=== PATIENT | female | born 1965 | race Caucasian/White ===

== ENCOUNTER → 2017-10-30 | Outpatient (CLI) | payer MEDICARE, OTHER ==
--- NOTE | 2017-10-30 14:32 | RAD ---
EXAM DESCRIPTION: Barium Swallow: RF CLINICAL HISTORY: DYSPHAGIA, UNSPECIFIED R13.10. Several months duration. Gastric reflux. Taking Omeprazole. COMPARISON: None TECHNIQUE: The patient swallowed gas-producing granules, water, and medium density barium under fluoroscopic visualization. The images were obtained with the patient standing and horizontal. Patient drank medium density barium through a straw in the semi-prone position. 12 fluoroscopic cine loop images. 3 static fluoroscopic images. Total fluoroscopy time was 2.1 minutes. DAP: 65.7 mGy. FINDINGS: No evidence of gema aspiration or gema swallowing dysfunction in the hypopharynx or larynx region. Smooth margins of the esophagus with no mucosal lesions or mass effect. Primary peristaltic wave is unremarkable with no secondary or tertiary contractions No gastroesophageal reflux or hiatal hernia. Normal caliber of the gastroesophageal hiatus. No gross intrinsic lesions of the stomach or mass effect. IMPRESSION: Esophageal swallowing study with barium showing significant abnormalities of the swallowing mechanism in the hypopharynx and larynx or in the remainder of the esophagus. No mucosal lesions or mass effect. No hiatal hernia or gastroesophageal reflux. Electronically signed by: Dexter Paula MD 10/30/2017 2:31 PM [facility]
== END ==
LOC: RAD 09:05
PROVIDERS: ATTEND Nurse Practitioner Family
DX: R13.10 Dysphagia, unspecified (principal)

== ENCOUNTER 2018-02-20 05:44 | Day surgery (SDC) | payer MEDICARE, MEDICAID ==
[2018-02-20] MEDS ORDERED: LACTATED RINGERS 1,000 ML ONE (06:11)
--- NOTE | 2018-02-20 08:57 | OP ---
DATE OF PROCEDURE: 02/20/18 PREPROCEDURE DIAGNOSIS: 1. History of polyps. 2. Surveillance colonoscopy. POSTPROCEDURE DIAGNOSIS: 1. Extensive number of colonic polyps partially resected, removed and retrieved. PROCEDURE: 1. Colonoscopy. SURGEON: Tex Vasquez MD SEDATION: The patient was sedated via IV propofol by the Anesthesia Department. COMPLICATIONS: No immediate complications. CONSENT: Prior to the procedure, risks, benefits and alternatives to the therapy were discussed with the patient. The risks included bleeding, infection , perforation and . The patient agreed to the procedure and signed a consent. PREPROCEDURE ANESTHESIA ASSESSMENT: An examination revealed no contraindication to sedation. Airway examination demonstrated a Mallampati class type 2, ASA grade assessment type 3. Throughout the procedure, the patient's blood pressure, pulse and oxygen saturation were monitored continuously. PROCEDURE: The patient was placed in the left lateral decubitus position and a rectal examination was performed. The rectal examination was within normal limits. The Olympus colonoscope was passed in the anus, rectum, traversing the colon to the level of the cecum as identified by the appendiceal orifice. The scope was retracted and the mucosa was visualized. The entirety of the exam was performed with direct visualization. Retroflexion was performed in the rectum. Preparation quality was fair to good except for the sigmoid colon as this was suboptimal. The withdrawal time was greater than 6 minutes. The patient tolerated the procedure well. FINDINGS: Extensive number of semi-sessile and pedunculated polyps were seen throughout the colon. A total of 15 resections were performed with both hot and cold snare resection. Polyps were partially retrieved as some of them were not able to be suctioned through the scope and no Harden net was available for capturing. A decision to terminate the procedure was made after significant number polypectomies and only suboptimal bowel preparation in the sigmoid colon. All the polyps removed were located in the cecum, ascending and transverse colon. A larger polyp measuring approximately 20 mm was left in place in the transverse colon due to its size and no available clips for possible post polypectomy bleeding prophylaxis. IMPRESSION: Numerous colonic polyps, partially removed and retrieved. 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 Additional clinical correlation and repeat colonoscopy is required. RECOMMENDATION: 1. Return home. 2. Resume previous diet. 3. Repeat colonoscopy in the next 3 to 6 months for colonic polyp removal. 4. Followup pathology. 5. Consider genetic counseling for genetic mutation workup. 6. All findings were discussed with the patient and family members. #[id number] [facility]
[2018-02-20 09:27] VITALS: BP 123/78; TEMP 97.1; O2SAT 96
[2018-02-20] MEDS ORDERED: LIDOCAINE 1% 10 ML VIAL INJ ONE (10:00)
[2018-02-20] MEDS ORDERED: PROPOFOL 200 MG/20 ML VIAL IV ONE (10:00)
== END 2018-02-20 09:25 | disposition home or self-care (01) ==
LOC: AMB 05:44
PROVIDERS: ATTEND Internal Medicine Gastroenterology
DX: Z12.11 Encounter for screening for malignant neoplasm of colon (principal); Z86.010 Personal history of colon polyps; D12.2 Benign neoplasm of ascending colon; F41.9 Anxiety disorder, unspecified; E03.9 Hypothyroidism, unspecified; I10 Essential (primary) hypertension; F31.9 Bipolar disorder, unspecified; K21.9 Gastro-esophageal reflux disease without esophagitis; F17.210 Nicotine dependence, cigarettes, uncomplicated; Z88.5 Allergy status to narcotic agent; Z79.899 Other long term (current) drug therapy
CPT/HCPCS: 00812; 45385; 88305; J3490; J7120

== ENCOUNTER → 2018-03-07 | Outpatient (CLI) | payer MEDICARE, MEDICAID | LOC: YCFC.O 12:05 | PROVIDERS: ATTEND Nurse Practitioner Family | DX: Z00.00 Encounter for general adult medical examination without abnormal findings (principal); Z13.220 Encounter for screening for lipoid disorders; R63.4 Abnormal weight loss; R53.82 Chronic fatigue, unspecified ==

== ENCOUNTER → 2018-03-21 | Outpatient (CLI) | payer MEDICARE, MEDICAID | LOC: YCFC.O 09:40 | PROVIDERS: ATTEND Nurse Practitioner Family | DX: E03.9 Hypothyroidism, unspecified (principal) ==

== ENCOUNTER → 2018-04-11 | Outpatient (CLI) | payer MEDICARE, MEDICAID | LOC: YCFC.O 15:10 | PROVIDERS: ATTEND Nurse Practitioner Family | DX: R35.0 Frequency of micturition (principal) ==

== ENCOUNTER → 2019-02-13 | Outpatient (CLI) | payer MEDICARE, OTHER | LOC: YCFC.O 11:44 | PROVIDERS: ATTEND Nurse Practitioner Family | DX: Z00.00 Encounter for general adult medical examination without abnormal findings (principal); E03.9 Hypothyroidism, unspecified; Z13.220 Encounter for screening for lipoid disorders ==

== ENCOUNTER → 2019-02-20 | Outpatient (CLI) | payer MEDICARE, OTHER ==
--- NOTE | 2019-02-22 07:41 | US ---
Thyroid sonogram CLINICAL HISTORY: Thyromegaly. Hypothyroidism. FINDINGS: Heterogeneous echotexture of the thyroid diffusely. 2 well delineated nodules, well-circumscribed. No calcifications. Right lobe measures 5.3 x 2.1 x 2.4 cm. Dominant solid nodule mid to lower thyroid measures 2.2 x 2.5 x 1.7 cm. An adjacent nodule posterior mid gland 1.6 x 1.0 x 1.2 cm Left lobe measures 4.2 x 1.4 x 1.8 cm. Nodule of the lower pole measures 0.9 x 1 x 1.2 cm. Well-circumscribed. No calcification. No surrounding adenopathy IMPRESSION: Heterogeneous echotexture compatible with sequela of thyroiditis/multinodular goiter. Dominant nodule along the mid to lower right lobe, 2.5 cm in greatest dimension. Consider FNA Electronically signed by: Juvenal Dominguez MD 02/22/2019 7:39 AM CDT
== END ==
LOC: US 11:00
PROVIDERS: ATTEND Nurse Practitioner Family
DX: E03.9 Hypothyroidism, unspecified (principal); E04.1 Nontoxic single thyroid nodule

== ENCOUNTER → 2019-02-26 | Outpatient (CLI) | payer MEDICARE, OTHER | LOC: LAB.O 12:58 | PROVIDERS: ATTEND Nurse Practitioner Family | DX: E03.9 Hypothyroidism, unspecified (principal) ==

== ENCOUNTER → 2019-08-07 | Outpatient (CLI) | payer MEDICARE, MEDICAID ==
[~2019-08-07] MED LIST: ALBUTEROL SULFATE 2.5 MG/3 ML VIAL NEB ONE
--- NOTE | 2019-08-08 08:24 | RAD ---
EXAM DESCRIPTION: Chest,2 Views CLINICAL HISTORY: DIFFICULTY SWALLOWING COMPARISON: None TECHNIQUE: PA/lateral FINDINGS: There is no cardiac or pulmonary abnormality. The lungs are clear. There is no effusion. IMPRESSION: 1. Normal two-view chest. Electronically signed by: Jovany Curtis MD 08/08/2019 8:22 AM [facility]
== END ==
LOC: YCFC.O 13:41
PROVIDERS: ATTEND Nurse Practitioner
DX: R13.10 Dysphagia, unspecified (principal); R06.00 Dyspnea, unspecified; E03.9 Hypothyroidism, unspecified
CPT/HCPCS: 71046; 83880; 84439; 84443; 94060; J7611

== ENCOUNTER → 2019-08-12 | Outpatient (CLI) | payer MEDICARE, MEDICAID ==
--- NOTE | 2019-08-12 14:19 | US ---
Thyroid Biopsy, Image-Guided: Ultrasound CLINICAL INFORMATION: Original scan in February 2019. 2.5 cm solid nodule right lobe. TECHNIQUE: Procedure performed by Dr. Paula. Timeout was performed for identification of patient and procedure and body part. Procedure was explained to the patient with risks and benefits. The patient gave verbal and written consent. Sterile preparation draping. 1% xylocaine dermal anesthetic 9-1 mixture with sodium bicarbonate. Sterile ultrasound guidance. A total of 6 passes solid mass inferior right lobe; 4 needle samplings with a separate 1.5 inch, 25-gauge needle per sample, and 2 aspirations, with a separate 1.5 inch, 25-gauge needle/10-cc syringe set, per aspiration. Each sample was placed on a separate slide and fixed in 95% alcohol container. Saccomanno fluid drawn into aspirate needle and rinse injected into Saccomanno container. Specimens to be sent for pathologic examination at remote facility. . Patient tolerated procedure well. Biopsy #: 1 Nodule reference number based on prior diagnostic ultrasound:other Maximum size: 2.5 cm Location: right; lower ACR TI-RADS risk category: TR4 (4-6 points) Reason for biopsy: meets ACR TI-RADS criteria Complications: None. Other: Very few cells visible on the slide. Only one pass demonstrated blood. IMPRESSION: Successful ultrasound guided fine needle aspiration of right lower lobe thyroid nodule. ACR TI-RADS Risk Category TR 4 Electronically signed by: Dexter Paula MD 08/12/2019 2:17 PM [employer] SPECIAL[facility]
== END ==
LOC: US 10:00
PROVIDERS: ATTEND Nurse Practitioner
DX: E04.1 Nontoxic single thyroid nodule (principal)

== ENCOUNTER → 2019-09-05 | Outpatient (CLI) | payer MEDICARE, MEDICAID | LOC: YCFC.O 11:41 | PROVIDERS: ATTEND Nurse Practitioner | DX: E03.9 Hypothyroidism, unspecified (principal) ==

== ENCOUNTER → 2019-09-16 | Outpatient (CLI) | payer MEDICARE, MEDICAID ==
--- NOTE | 2019-09-17 11:20 | US ---
Thyroid Biopsy, Image-Guided: Biopsy of Thyroid: Ultrasound CLINICAL INFORMATION: 54 years Female. Follow-up biopsy thyroid right lobe nodule, insufficient cells on prior biopsy August 2019. TECHNIQUE: Procedure was explained to the patient with risks and benefits. The patient gave verbal and written consent. Sterile preparation draping. 1% xylocaine dermal anesthetic 9-1 mixture with sodium bicarbonate. Sterile ultrasound guidance. A total of 6 passes solid mass inferior right lobe; 3 needle samplings with a separate 1.5 inch, 25-gauge needle per sample, and 3 aspirations, with a separate 1.5 inch, 25-gauge needle/10-cc syringe set, per aspiration. Each sample was placed on a separate slide and fixed in 95% alcohol container. Saccomanno fluid drawn into aspirate needle and rinse injected into Saccomanno container. Specimens to be sent for pathologic examination at remote facility. . Patient tolerated procedure well. Biopsy #: 1 Nodule reference number based on prior diagnostic ultrasound:other. Not given nodule number on initial study. Biopsy #1 on prior procedure. Maximum size: 2.5 cm Location: right; mid ACR TI-RADS risk category: TR4 (4-6 points) Reason for biopsy: meets ACR TI-RADS criteria Complications: None. Minimal amount of cells and fluid, more than prior study. FINDINGS: Multiple images demonstrate the echogenic needle within the right lobe nodule/mass during sampling and aspirations. IMPRESSION: Successful ultrasound guided fine needle aspiration of right solid mid thyroid nodule. ACR TI-RADS Risk Category TR 4 Electronically signed by: Dexter Paula MD 09/17/2019 11:18 AM [employer]
== END ==
LOC: US 11:15
PROVIDERS: ATTEND Nurse Practitioner
DX: E04.1 Nontoxic single thyroid nodule (principal)

== ENCOUNTER → 2019-10-03 | Outpatient (CLI) | payer MEDICARE, MEDICAID | LOC: LAB.O 14:33 | PROVIDERS: ATTEND Nurse Practitioner | DX: E03.9 Hypothyroidism, unspecified (principal) ==

== ENCOUNTER → 2020-02-19 | Outpatient (CLI) | payer MEDICARE, MEDICAID ==
--- NOTE | 2020-02-20 17:35 | US ---
US THYROID CLINICAL STATEMENT:54 years Female NODULE. . Palpable mass right lobe. Prior right lobe biopsy x 2 non-diagnostic results. No thyroid medication. COMPARISON: None TECHNIQUE: Transcutaneous scanning, grayscale and Doppler modes. FINDINGS: Size right thyroid lobe: 4.8 x 2.5 x 1.9 cm Size left thyroid lobe: 4.1 x 1.9 x 1.6 cm Size isthmus: 0.25 cm Estimated total number of nodules greater than or equal to 1 cm: 1. No distinct cysts, no fluid collection, no large calcifications in the thyroid lobes. No overlying skin changes. Nodule 1: Size: 2.2 x 2.2 x 2.1 cm Location: Right Mid Composition: solid or almost completely solid: 2 points Echogenicity: hypoechoic: 2 points Shape: wider than tall: 0 points Margins: ill-defined: 0 points Echogenic foci: none: 0 points ACR Total Points: 4; ACR TI-RADS risk category: TR4 - moderately suspicious nodule. Soft tissue around the thyroid gland is unremarkable. IMPRESSION: 1. Nodule 1: ACR TI-RADS 2017 Category TR4. Stable appearance and size compared to the prior study. Recommend: Follow-up ultrasound in 1 year.. Recommendations based upon [employer] [facility] Best Practice recommendations and ACR TI-RADS 2017 guidelines. Please see below*. 2. Soft tissue around the thyroid gland is unremarkable. *ACR TI-RADS 2017 Recommendations for imaging follow-up of nodules: TR1: No FNA or follow up TR2: No FNA or follow up TR3: FNA if >/= 2.5 cm, follow up if 1.5 - 2.4 cm in 1, 3, and 5 years TR4: FNA if >/= 1.5 cm, follow up if 1.0 - 1.4 cm in 1, 2, 3, and 5 years TR5: FNA if >/= 1.0 cm, follow up if 0.5 - 0.9 cm every year for 5 years ACR TI-RADS recommends that no more than two nodules with the highest ACR TI-RADS total point should be biopsied and no more than four nodules should be followed. These recommendations do not apply to patients with increased risk for thyroid cancer or patients with symptomatic thyroid disease. Electronically signed by: Dexter Paula MD 02/20/2020 5:34 PM CDT
== END ==
LOC: US 13:35
PROVIDERS: ATTEND Internal Medicine Endocrinology, Diabetes & Metabolism
DX: E03.9 Hypothyroidism, unspecified (principal); E06.3 Autoimmune thyroiditis; E04.1 Nontoxic single thyroid nodule; Z83.49 Family history of other endocrine, nutritional and metabolic diseases

== ENCOUNTER 2020-06-24 11:03 | Inpatient (IN) | payer MEDICARE, MEDICAID ==
--- NOTE | 2020-06-24 11:48 | RAD ---
Procedure: XR CHEST 1 VIEW Exam Date: 06/24/2020 Ordering Provider: Doroteo Dixon Clinical Indication: sob Comparison: 08/07/2019 Findings: Cardiomediastinal silhouette is within normal limits. Aortic calcification. No focal lung consolidation. No pleural effusion. No pneumothorax. No acute osseous abnormality. Impression: 1. No acute abnormality in the chest. Electronically signed by: Phu Leiva MD 06/24/2020 11:47 AM CDT
[2020-06-24] MEDS ORDERED: MAGNESIUM SULFATE PREMIX 4GM 4 GM in PREMIX BAG 1 BAG IVPB ONE (11:56)
[2020-06-24] MEDS ORDERED: CALCIUM GLUCONATE INJ 1 GM in SODIUM CHLORIDE 0.9% 50ML 50 ML IVPB ONE (11:56)
[2020-06-24] MEDS ORDERED: IPRATROPIUM/ALBUTEROL 3 ML VIAL NEB ONE (12:21)
[2020-06-24] MEDS ORDERED: predniSONE 20 MG TAB PO ONE (13:44)
[2020-06-24] MEDS ORDERED: CALCITRIOL 0.25 MCG CAP PO ONE (13:57)
--- NOTE | 2020-06-24 14:13 | ED.PDOC ---
History of Present Illness - General Chief Complaint: Neuro Symptoms/Deficits Stated Complaint: right hand numbness (post op) Time Seen by Provider: 06/24/20 11:13 Source: patient Exam Limitations: no limitations - History of Present Illness Initial Comments: The patient is a 55-year-old female presented emergency room secondary to symptoms of muscle cramping in her forearms with tetany in her hands along with shortness of breath and hoarseness are progressive since she had her thyroid removed 4 days ago. The patient had it removed with . I did speak with this doctor on the phone and she reports that the vocal cord movement was good post surgery. Parathyroids were left in place. Timing/Duration: other - 4 days Severity: moderate Improving Factors: nothing Worsening Factors: nothing Associated Symptoms: cough, malaise, shortness of breath, weakness Allergies/Adverse Reactions: Allergies Codeine Allergy (Verified 02/20/18 08:12) Review of Systems - Review of Systems Constitutional: States: malaise EENTM: States: other - hoarse Respiratory: States: short of breath Cardiology: States: no symptoms reported Gastrointestinal/Abdominal: States: no symptoms reported Genitourinary: States: no symptoms reported Musculoskeletal: States: see HPI Skin: States: no symptoms reported Neurological: States: anxiety Endocrine: States: no symptoms reported All other Systems: No Change from Baseline Past Medical History (General) - Patient Medical History Hx of COPD: Yes Hx Hypertension: No Hx Thyroid Disease: Yes - hashimotos Hx Diabetes: No Hx Renal Disease: No Hx MRSA: No Surgical History: other Family Medical History - Family History Mother Family History: No Known Physical Exam - Physical Exam General Appearance: Alert, Anxious Eye Exam: bilateral normal Ears, Nose, Throat: hearing grossly normal, normal pharynx Neck: other - Steri-Strips in place over thyroidectomy site. Respiratory: lungs clear, normal breath sounds, no respiratory distress, no accessory muscle use Cardiovascular/Chest: normal peripheral pulses, regular rate, rhythm, no edema Peripheral Pulses: radial,right: 2+, radial,left: 2+ Gastrointestinal/Abdominal: non tender, soft Rectal Exam: deferred Back Exam: no CVA tenderness, no vertebral tenderness Extremity: normal range of motion, non-tender, normal inspection, no pedal edema, normal capillary refill Neurologic: operations boardman II-XII nml as tested, alert, normal mood/affect, oriented x 3 Skin Exam: normal color Comments: Vital Signs - 24 hr 06/24/20 11:10 Temperature 97.8 F Pulse Rate [ 71 left brachial] Respiratory 22 Rate Blood Pressure 167/78 [right brachial ] O2 Sat by Pulse 96 Oximetry Progress - Progress Progress: 06/24/20 14:15 The patient is a 55-year-old female now 4 days status post thyroidectomy. The patient is having complications of hypo parathyroidism in the form of hypomagnesia and hypocalcemia. She did receive IV magnesium and has already received 1 amp of calcium gluconate. The patient is going to be admitted for continued calcium administration. She is receiving her first dose of calcitriol now. Her surgeon would like her on 2 weeks of calcitriol 0.5 mcg twice daily. Additionally the patient will be placed on calcium carbonate 4 tablets 4 times daily when she leaves the hospital. Tetany has greatly improved with the magnesium and the calcium. The patient is feeling much better. Patient does have some hoarseness and some shortness of breath. Lung hernandez are clear both on auscultation and on chest x-ray. I believe this is due to swelling around the voicebox. Nasolaryngoscopy performed by me does show some edema in the tissues just superior to the vocal cords. Both vocal cords do appear to be moving. The patient received a dose of prednisone to help reduce inflammation. Admit for continued care and monitoring. No evidence of any cardiac manifestations at this point. Acceptance is appreciated. steven mckinnon [phone] - Results/Orders Results/Orders: EKG shows normal sinus rhythm at 61 bpm. Normal axis. Normal R wave progression. Possible early right bundle branch block. No ST segment or T wave changes indicative of acute ischemia. Normal QT interval. Chest x-ray shows no acute pathology. Laboratory Results - last 24 hr 06/24/20 06/24/20 06/24/20 11:28 11:28 11:28 WBC 6.5 RBC 4.48 Hgb 13.2 Hct 38.4 MCV 85.7 MCH 29.4 MCHC 34.4 RDW 14.8 H Plt Count 222 MPV 7.5 Absolute Neuts (auto) 4.10 Absolute Lymphs (auto) 2.00 Absolute Monos (auto) 0.30 Absolute Eos (auto) 0.00 Absolute Basos (auto) 0.00 Neutrophils % 63.9 Lymphocytes % 31.4 Monocytes % 4.1 Eosinophils % 0.0 L Basophils % 0.6 Sodium 142 Potassium 4.2 Chloride 105 Carbon Dioxide 27 Anion Gap 14.2 BUN 13 Creatinine 0.96 BUN/Creatinine Ratio 13.5 Random Glucose 87 Serum Osmolality 282.6 Calcium 6.6 L* Magnesium 1.4 L Total Bilirubin 0.5 AST 18 ALT 10 Alkaline Phosphatase 88 Creatine Kinase 166 H CK-MB (CK-2) 2.0 CK-MB (CK-2) % Not Reportable Troponin I < 0.02 B-Natriuretic Peptide 347.0 H* Serum Total Protein 7.0 Albumin 3.7 Globulin 3.3 Albumin/Globulin Ratio 1.1 TSH 0.38 Free T4 1.91 H Departure - Departure Clinical Impression: Hypocalcemia, Hypomagnesemia, Tetany due to low calcium from parathyroid disease Hypoparathyroidism Qualifiers: Hypoparathyroidism type: unspecified Qualified Code(s): E20.9 - Hypoparathyroidism, unspecified Disposition: Admit Patient Condition: Fair Departure Forms: ED Discharge - Pt. Copy, Patient Portal Self Enrollment Referrals: Barbie Catalan FNP [Primary Care Provider] - 1-2 Weeks Decision To Admit - Decistion To Admit Decision to Admit Reason: Medical Nature Decision to Admit Date: 06/24/20 Decision to Admit Time: 14:17
--- NOTE | 2020-06-24 14:57 | HP ---
SUPERVISING PHYSICIAN: Michele Rivera MD CHIEF COMPLAINT: Right hand numbness postoperative thyroidectomy. HISTORY OF PRESENT ILLNESS: Ms. Bray is a 55-year-old female patient who presented to the Emergency Room complaining of some symptoms related to muscle cramping in her forearms with tetany in her hand along with shortness of breath and hoarseness that has progressively worsened since she had her thyroid removed four days previously. Dr. Bhatt did her surgery. Dr. Dixon, the ER physician, contacted Dr. Bhatt and reported her vocal cords had good movement post surgery. Also of note by Dr. Bhatt was that her parathryoids were left in place. Her initial calcium level was 6.6 with magnesium 1.4. BNP was elevated at 347. Free T4 was elevated at 1.91. Otherwise, chemistries were within normal limits. CBC showed white count 6,500 with no left shift. Vital signs on admission in the Emergency Room showed she saturation 92% on room air with respirations, 15 blood pressure initially 167/78, heart rate 71, afebrile at 97.8. She was given 1 gram of calcium as well as 4 grams of magnesium which did resolve her symptoms initially. A chest x-ray showed no acute abnormalities per the radiologist. Given the patient's history of recent thyroidectomy with hypocalcemia that is symptomatic, the patient is going to be placed in observation. We will continue replacing her calcium and normalize that with calcium gluconate, monitor labs and as per requested of Dr. Bhatt, the patient will be started on Rocaltrol and oral calcium on discharge. The patient was actually asymptomatic after initial treatment with calcium IV, magnesium IV and is in stable condition at time of placement in observation. PAST MEDICAL HISTORY: 1. Hypothyroidism with a history of thyroid lesions with recent bilateral thyroidectomy. 2. Depression and anxiety. 3. Chronic tobacco abuse. 4. History of alcoholism with last drink being 16 years previously. 5. Chronic obstructive pulmonary disease in a current smoker. PAST SURGICAL HISTORY: 1. Thyroidectomy on 06/21/[address] Bhatt with sparing of the parathyroid. 2. Umbilical hernia repair as a child. 3. Tubal ligation. 4. Two basal cell carcinoma removed from the lower leg. HOME MEDICATIONS: 1. Trazodone 300 mg at bedtime. 2. Olanzapine 10 mg at bedtime. 3. BuSpar 10 mg t.i.d. 4. Levothyroxine 75 mcg daily. 5. Spiriva 18 mcg daily. ALLERGIES: CODEINE. FAMILY HISTORY: Significant for multiple members with thyroid cancers and thyroid problems including sister, aunt and mother who are all still living. Her dad is healthy at this time with no medical issues. SOCIAL HISTORY: The patient lives in [place], [place]. 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 She is and has a history of smoking tobacco in the form of cigarettes, one pack a day since age 8 and history of alcoholism with last drink being 16 years previously. She denies any illicit drug use. REVIEW OF SYSTEMS: CONSTITUTIONAL: Positive for general malaise. Negative for any fevers, chills or unintentional weight loss or gain. HEENT: As noted in history of present illness, hoarseness. No reported airway issues. RESPIRATORY: Negative for respiratory problems, but does have on and off chronic shortness of breath. CARDIOVASCULAR: Negative for chest pain, palpitations or syncopal episodes. GASTROINTESTINAL: Negative for nausea, vomiting, diarrhea, constipation or abdominal pain. GENITOURINARY: Negative for dysuria, hematuria, polyuria. MUSCULOSKELETAL: As noted in history of present illness. SKIN: Negative for lesions, rashes, moles or unexplained changes. NEUROLOGIC: Negative for ataxia, seizures, dizziness, headaches, but does have chronic anxiety. HEMATOLOGIC: Negative for easy bruising, unexplained bleeding or transfusion reactions. PHYSICAL EXAMINATION: VITAL SIGNS: Temperature 97.8, pulse 71, blood pressure 167/78, respirations 22, saturation 93% on room air. GENERAL: The patient does appear to be a little anxious, but she says that is her normal presentation. She is not in any acute distress. HEENT: Tympanic membranes clear bilaterally. Oropharynx is pink, moist without any notable lesions. NECK: Steri-Strips are in place over the thyroidectomy site. RESPIRATORY: Lung sounds are clear to auscultation bilaterally without any rhonchi, wheezes or rales. CARDIOVASCULAR: Regular rate and rhythm without any appreciable murmurs, gallops, or rubs. ABDOMEN: Soft, nontender. Positive bowel sounds. RECTAL: Deferred. BACK: No CVA or vertebral tenderness. EXTREMITIES: There is no cyanosis, clubbing or edema. NEUROLOGIC: As noted previously, some tetany, carpopedal spasms. No obvious abnormalities noted on exam. Cranial nerves II-XII are grossly intact. Facial features are symmetrical. Extraocular movements are within normal limits. There is no nystagmus noted. The patient is alert and oriented times three. LABORATORY: White count 6,500, hemoglobin 13.2, hematocrit 38.4, platelet count 222,000. Differential without a left shift. Blood gas analysis showed normal pO2 of 93 on room air, saturation 97% with pCO2 33, pH a little alkalotic at 7.48. Base excess normal at 2.1. Chemistries did show a magnesium of 1.4, calcium 6.6. Otherwise, all electrolytes within normal limits including potassium at 4.2. Liver functions were all within normal limits. BNP was a little elevated at 347. TSH normal at 0.38. T4 low at 1.91. Nasal swab for COVID was negative. RADIOLOGY: Chest x-ray per radiologic interpretation was without any acute abnormalities in the chest. ASSESSMENT: 1. Symptomatic hypocalcemia status post bilateral thyroidectomy, postoperative day #4. 2. Hypomagnesemia secondary to #1. 3. Chronic obstructive pulmonary disease without signs of current exacerbation in a current smoker. 4. Chronic tobacco abuse in the form of smoking. 5. History of hypothyroidism with recent thyroidectomy as noted in #1. 6. Depression and anxiety on multiple medications. 7. Elevated BNP with no formal diagnosis of congestive heart failure. PLAN: The patient is going to be placed in observation for continued replacement of her calcium with calcium gluconate. We will give 2 grams of calcium gluconate initially on admission after ER recheck is at 6.6, recheck calcium level in 4 to 6 hours and readjust dosing based on that with calcium gluconate. She was started on Rocaltrol and per Dr. Bhatt's request, she will be continued on that at 0.5 mcg twice daily for 2 days, but she has an appointment Dr. Bhatt this coming Sunday at 14:30. She will also need to discharge on calcium carbonate 4 tablets 4 times a day. We will follow magnesium as well as calcium and treat both as required appropriately. She was given Decadron in the Emergency Room for some mild swelling around the voice box. Otherwise, the nasolaryngeal scope performed by Dr. Dixon showed some mild edema in the tissues just in the superior to the vocal cords, but vocal cords appeared to be moving. We will monitor her neurologically q.4h. and as needed. She will be on continuous cardiac telemetry. We will plan on 1 to 2 of hospitalization depending on how her calcium levels stabilize. Once her calcium levels are above 8 and stable, we can discharge to continue with outpatient management. Until then, we will continue to monitor and treat as needed. #[id number] [facility]
[2020-06-24] MEDS ORDERED: CALCIUM GLUCONATE INJ 2 GM in SODIUM CHLORIDE 0.9% 100ML 100 ML IVPB ONE ×2 (17:02→21:20)
[2020-06-24] MEDS ORDERED: ACETAMINOPHEN 325 MG TAB PO PRN (17:04)
[2020-06-24] MEDS ORDERED: SODIUM CHLORIDE 0.9% (FLUSH) 10 ML SYG IV PRN (17:04)
[2020-06-24] MEDS ORDERED: IV SET AND CAP CHANGE INJ INJ SCH (17:30)
[2020-06-24] MEDS: NICOTINE PATCH 21 MG TD SCH (18:12)
[2020-06-24] MEDS: traZODone HCL 100 MG TAB PO SCH (20:30)
[2020-06-24] MEDS: busPIRone HCL 5 MG TAB PO SCH (20:30)
[2020-06-24] MEDS ORDERED: OLANZAPINE 10 MG PO SCH (21:00)
[2020-06-24] MEDS ORDERED: OLANZapine ODT 5 MG TAB ONE (21:00)
[2020-06-24] MEDS ORDERED: CALCIUM GLUCONATE INJ 1 GM/10 ML VIAL ONE (21:27)
[2020-06-24] MEDS ORDERED: SODIUM CHLORIDE 0.9% 100ML 100 ML IVPB ONE (21:28)
[2020-06-25] MEDS ORDERED: CALCIUM GLUCONATE INJ 2 GM in SODIUM CHLORIDE 0.9% 100ML 100 ML IVPB ONE ×3 (08:08→21:21)
[2020-06-25] MEDS ORDERED: SODIUM CHLORIDE 0.9% 100ML 100 ML IVPB ONE ×3 (08:35→21:25)
[2020-06-25] MEDS ORDERED: CALCIUM GLUCONATE INJ 1 GM/10 ML VIAL ONE ×3 (08:35→21:25)
[2020-06-25] MEDS ORDERED: NICOTINE PATCH 21 MG TD ONE (08:44)
[2020-06-25] MEDS ORDERED: busPIRone HCL 5 MG TAB ONE (08:44)
[2020-06-25] MEDS ORDERED: LEVOTHYROXINE SODIUM 0.075 MG TAB ONE (08:44)
[2020-06-25] MEDS ORDERED: predniSONE 20 MG TAB PO ONE (08:55)
[2020-06-25] MEDS: BUDESONIDE NEBS 0.5 MG/2 ML INH NEB SCH ×2 (09:05→20:15)
[2020-06-25] MEDS: ALBUTEROL SULFATE 2.5 MG/3 ML VIAL NEB SCH ×3 (09:05→20:15)
[2020-06-25] MEDS: LEVOTHYROXINE SODIUM 0.075 MG TAB PO SCH (09:59)
[2020-06-25] MEDS: busPIRone HCL 5 MG TAB PO SCH ×3 (09:59→20:34)
[2020-06-25] MEDS: NICOTINE PATCH 21 MG TD SCH (10:00)
[2020-06-25] MEDS: REMOVE OLD PATCH TOP SCH (10:00)
[2020-06-25] MEDS: CALCITRIOL 0.25 MCG CAP PO SCH ×2 (10:06→20:34)
[2020-06-25] MEDS ORDERED: MAGNESIUM SULFATE PREMIX 2GM 2 GM in PREMIX BAG 1 BAG IVPB ONE (15:49)
--- NOTE | 2020-06-25 19:26 | PN ---
SUPERVISING PHYSICIAN: Michele Rivera MD DATE: 06/25/20 SUBJECTIVE: The patient seems to be doing okay. She still says she feels like she is having some spasms in her hands, although I have not been able to reproduce them clinically. She is getting her calcium replacement with no complications. She has had no nausea or vomiting, no vision changes, no heart palpitations and no changes on her EKG. OBJECTIVE: VITAL SIGNS: Temperature 97.6, pulse 70, blood pressure 126/80, respirations 18, oxygen saturation 97% on room air. GENERAL: Patient looks to be resting comfortably. She is a little anxious but seems to be anxious all the time. Does not look to be in any discomfort and she is alert. CHEST: Lung sounds remain clear to auscultation, just a little diminished towards the bases. HEART: Regular rate and rhythm. ABDOMEN: Soft, non-tender, positive bowel sounds. EXTREMITIES: I am not seeing any signs of spasms in upper arms or hands as she describes. NEUROLOGICAL: She is alert and oriented x3 with no obvious motor deficits. SKIN: Warm, pink and dry. LABORATORY: She has had multiple calcium levels. Calcium level this morning was at 7.7, magnesium at 1.9. Electrolytes within normal limits. Creatinine 0.75. ASSESSMENT: 1. Symptomatic hypocalcemia status post bilateral thyroidectomy, postoperative day #5. 2. Hypomagnesemia secondary to #1. 3. Chronic obstructive pulmonary disease without signs of current exacerbation in a current smoker. 4. Chronic tobacco abuse in the form of smoking. 5. History of hypothyroidism with recent thyroidectomy as noted in #1. 6. Depression and anxiety on multiple medications. 7. Elevated BNP with no formal diagnosis of congestive heart failure. PLAN: I will continue to replace her calcium 2 grams and calcium gluconate. Repeat calcium levels every 4 hours. She is on Rocaltrol 5 mcg b.i.d. and she will go home on it for at least 2 weeks as well as I discussed with her that we will start her on some oral calcium carbonate prior to discharge. Will continue to replace her calcium, check her calcium levels and once she gets above 8.2 and showing to be stable, we will discharge her home to followup with her surgeon Dr. Bhatt. Given that she does still have some hoarseness in her voice and obviously a little swollen in the area where the scar is, I am going to give a second low-dose of prednisone 20 mg, I would anticipate if we can get her calcium up and it shows stable by tomorrow, we can discharge her home and followup with Dr. Bhatt as an outpatient. Until the, we will continue to monitor and treat as needed. #[id number] [facility]
[2020-06-25] MEDS: traZODone HCL 100 MG TAB PO SCH (20:33)
[2020-06-25] MEDS: OLANZapine ODT 5 MG TAB PO SCH (20:34)
[2020-06-26] MEDS: LEVOTHYROXINE SODIUM 0.075 MG TAB PO SCH (06:02)
[2020-06-26] MEDS: CALCITRIOL 0.25 MCG CAP PO SCH ×2 (08:50→20:47)
[2020-06-26] MEDS: NICOTINE PATCH 21 MG TD SCH (08:50)
[2020-06-26] MEDS: ALBUTEROL SULFATE 2.5 MG/3 ML VIAL NEB SCH ×3 (08:50→19:49)
[2020-06-26] MEDS: REMOVE OLD PATCH TOP SCH (08:50)
[2020-06-26] MEDS: busPIRone HCL 5 MG TAB PO SCH ×3 (08:50→20:47)
[2020-06-26] MEDS: BUDESONIDE NEBS 0.5 MG/2 ML INH NEB SCH ×2 (08:50→19:49)
[2020-06-26] MEDS ORDERED: POTASSIUM CHLORIDE ELIXIR 20 MEQ/15 ML UD PO ONE (09:33)
[2020-06-26] MEDS ORDERED: CALCIUM GLUCONATE INJ 2 GM in SODIUM CHLORIDE 0.9% 100ML 100 ML IVPB ONE ×3 (09:33→22:35)
[2020-06-26] MEDS ORDERED: CALCIUM GLUCONATE INJ 1 GM/10 ML VIAL ONE ×3 (09:42→23:17)
[2020-06-26] MEDS ORDERED: SODIUM CHLORIDE 0.9% 100ML 100 ML IVPB ONE ×3 (09:42→23:11)
[2020-06-26] MEDS ORDERED: POTASSIUM CHLORIDE ELIXIR 20 MEQ/15 ML UD ONE (09:43)
--- NOTE | 2020-06-26 14:57 | PN ---
SUPERVISING PHYSICIAN: Michele Rivera MD DATE: 06/26/20 SUBJECTIVE: The patient is doing well, although her calcium levels are being persistently slow to respond to treatment. She still says she is having some spasms, although I have not been able to produce them clinically. She has had no changes in her EKG, no chest pain, no heart palpitations. OBJECTIVE: VITAL SIGNS: Temperature 98.1, pulse 57, blood pressure 132/69, respirations 18, oxygen saturation 95% on room air. GENERAL: Patient looks to be resting comfortably. She is a little anxious but seems to be anxious all the time. Does not look to be in any discomfort and she is alert. CHEST: Lung sounds remain clear to auscultation, just a little diminished towards the bases. HEART: Regular rate and rhythm. ABDOMEN: Soft, non-tender, positive bowel sounds. EXTREMITIES: I am not seeing any signs of spasms in upper arms or hands as she describes. NEUROLOGICAL: She is alert and oriented x3 with no obvious motor deficits. SKIN: Warm, pink and dry. LABORATORY: Calcium level 7.5, magnesium actually up to 1.9 as well as 1.7 since admission which is improved from 1.4 in the Emergency Room. Calcium level is up to 7.9, potassium down a little bit today at 3.1. Otherwise, electrolytes within normal limits. RADIOLOGY: No studies today. ASSESSMENT: 1. Symptomatic hypocalcemia status post bilateral thyroidectomy, postoperative day #6. 2. Hypomagnesemia secondary to #1. 3. Chronic obstructive pulmonary disease without signs of current exacerbation in a current smoker. 4. Chronic tobacco abuse in the form of smoking. 5. History of hypothyroidism with recent thyroidectomy as noted in #1. 6. Depression and anxiety on multiple medications. 7. Elevated BNP with no formal diagnosis of congestive heart failure. PLAN: I will continue with replacement of her calcium and calcium gluconate and recheck her calcium levels every 4 hours and adjust dosing as such. The goal is to get her calcium level at least above 8, preferably 8.2. Of course, we will follow the albumin levels as well and check her BMPs to assure her calcium levels are improving. In regard to the low potassium today, we will go ahead and give her oral potassium 40 mEq. We will continue with telemetry. She does remain saline-locked as she is taking oral intake adequately. She is on a nicotine patch. She is on Lovenox for DVT prophylaxis. She does not need to be on any PPI for gastric protection, she only had a low-dose of prednisone on admission and single dose yesterday. Her airway is stable at this point. We will hold off on any additional prednisone. She is still a little bit hoarse but that has improved. Once we can get her potassium, magnesium and calcium levels stabilized for at least 12 to 24 hours, I would anticipate we could discharge. Hopefully, this will occur within the next 2 hours. Until then, we will continue to monitor and treat as needed. #[id number] [facility]
[2020-06-26] MEDS ORDERED: CALCIUM CARBONATE (ANTACID) 500 MG CHEWABLE TAB PO ONE ×2 (20:01→20:04)
[2020-06-26] MEDS: traZODone HCL 100 MG TAB PO SCH (20:47)
[2020-06-26] MEDS: OLANZapine ODT 5 MG TAB PO SCH (20:47)
[2020-06-26] MEDS ORDERED: POTASSIUM CHLORIDE 20 MEQ TAB PO ONE (22:35)
[2020-06-26] MEDS ORDERED: POTASSIUM CHLORIDE 20 MEQ TAB ONE (23:11)
[2020-06-27] MEDS: LEVOTHYROXINE SODIUM 0.075 MG TAB PO SCH (06:05)
[2020-06-27] MEDS ORDERED: POTASSIUM CHLORIDE 20 MEQ TAB ONE (06:57)
[2020-06-27] MEDS ORDERED: POTASSIUM CHLORIDE 20 MEQ TAB PO SCH (07:30)
[2020-06-27] MEDS ORDERED: MAGNESIUM SULFATE PREMIX 2GM 2 GM in PREMIX BAG 1 BAG IVPB ONE (08:01)
[2020-06-27] MEDS: ALBUTEROL SULFATE 2.5 MG/3 ML VIAL NEB SCH (08:25)
[2020-06-27] MEDS: BUDESONIDE NEBS 0.5 MG/2 ML INH NEB SCH (08:25)
[2020-06-27] MEDS: busPIRone HCL 5 MG TAB PO SCH (08:27)
[2020-06-27] MEDS: NICOTINE PATCH 21 MG TD SCH (08:27)
[2020-06-27] MEDS: CALCITRIOL 0.25 MCG CAP PO SCH (08:28)
[2020-06-27] MEDS: REMOVE OLD PATCH TOP SCH (08:30)
[2020-06-27] MEDS ORDERED: MAGNESIUM SULFATE PREMIX 2GM 50 ML IVPB ONE (08:54)
[2020-06-27 10:22] VITALS: BP 136/78; TEMP 98.1; O2SAT 94
--- NOTE | 2020-07-06 09:21 | DS ---
SUPERVISING PHYSICIAN: Michele Rivera MD ADMISSION DIAGNOSIS: 1. Symptomatic hypocalcemia status post bilateral thyroidectomy, postoperative day #4. 2. Hypomagnesemia secondary to #1. 3. Chronic obstructive pulmonary disease without signs of current exacerbation in a current smoker. 4. Chronic tobacco abuse in the form of smoking. 5. History of hypothyroidism with recent thyroidectomy as noted in #1. 6. Depression and anxiety on multiple medications. 7. Elevated BNP with no formal diagnosis of congestive heart failure. DISCHARGE DIAGNOSIS: 1. Symptomatic hypocalcemia status post bilateral thyroidectomy, postoperative day #7. 2. Hypomagnesemia secondary to #1. 3. Chronic obstructive pulmonary disease without signs of current exacerbation in a current smoker. 4. Chronic tobacco abuse in the form of smoking. 5. History of hypothyroidism with recent thyroidectomy as noted in #1. 6. Depression and anxiety on multiple medications. 7. Elevated BNP with no formal diagnosis of congestive heart failure. REASON FOR HOSPITALIZATION : Ms. Bray is a 55-year-old female patient who presented to the Emergency Room complaining of some symptoms related to muscle cramping in her forearms with tetany in her hand along with shortness of breath and hoarseness that has progressively worsened since she had her thyroid removed four [address] Bhatt did her surgery. Dr. Dixon, the ER physician, contacted Dr. Bhatt and reported her vocal cords had good movement post surgery. Also of note by Dr. Bhatt was that her parathryoids were left in place. Her initial calcium level was 6.6 with magnesium 1.4. BNP was elevated at 347. Free T4 was elevated at 1.91. Otherwise, chemistries were within normal limits. CBC showed white count 6,500 with no left shift. Vital signs on admission in the Emergency Room showed she saturation 92% on room air with respirations, 15 blood pressure initially 167/78, heart rate 71, afebrile at 97.8. She was given 1 gram of calcium as well as 4 grams of magnesium which did resolve her symptoms initially. A chest x-ray showed no acute abnormalities per the radiologist. Given the patient's history of recent thyroidectomy with hypocalcemia that is symptomatic, the patient is going to be placed in observation. We will continue replacing her calcium and normalize that with calcium gluconate, monitor labs and as per requested of Dr. Bhatt, the patient will be started on Rocaltrol and oral calcium on discharge. The patient was actually asymptomatic after initial treatment with calcium IV, magnesium IV and is in stable condition at time of placement in observation. LABORATORY: Calcium level on discharge was 8.4, magnesium 1.6, potassium 4.3, creatinine at 0.83. All other labs were within normal limits. MICROBIOLOGY: COVID nasal swab was negative. RADIOLOGY: Chest x-ray showed no acute abnormalities of the chest. EKG showed normal sinus rhythm with rate of [address] or T-wave changes to indicate ischemia. HOSPITAL COURSE: Ms. Bray was admitted for hypocalcemia after a thyroidectomy several days prior to admission. She was given multiple doses of calcium gluconate and started on Calcitrol as well as oral calcium at discharge. She showed resolution of her symptoms. On the day of discharge, vital signs are stable with temperature 98.1, pulse 67, blood pressure 136/78, respirations 16, saturation 94% on room air with the patient having no neurological symptoms related to hypocalcemia. It was felt she had improved clinically well enough to followup with her surgeon, Dr. Bhatt, as an outpatient. PLAN: Ms. Bray was discharged to followup with Dr. Bhatt, her surgeon, Sunday after discharge. She was to have her calcium and magnesium levels rechecked on Sunday as an outpatient through [facility]. She was instructions to return to the Emergency Room should she have any concerning symptoms. She was also to followup with NICO Nobles, at [facility] as needed. Diet on discharge was regular diet as tolerated and activities to increase as tolerated. She was encouraged to stop smoking. MEDICATIONS PRESCRIBED AT DISCHARGE: 1. Calcium 500 mg tablets, 2 tablets orally 4 times a day, #80, no refills. 2. Calcitrol 0.25 mcg caplets, 0.5 mcg twice daily for 14 days, #28, no refills. CONDITION ON DISCHARGE: Stable and improved. DISPOSITION: The patient is discharged home. [facility][id number] [facility]
== END 2020-06-27 13:11 | disposition home or self-care (01) | DRG 641 ==
LOC: ER 11:03 → MS 14:56 → OBSVTOIN 14:56
PROVIDERS: ADMIT Nurse Practitioner Family; ATTEND Nurse Practitioner Family
DX: E83.51 Hypocalcemia (principal); E89.0 Postprocedural hypothyroidism; E83.42 Hypomagnesemia; J44.9 Chronic obstructive pulmonary disease, unspecified; F17.210 Nicotine dependence, cigarettes, uncomplicated; F41.9 Anxiety disorder, unspecified; F32.9 Major depressive disorder, single episode, unspecified; R79.89 Other specified abnormal findings of blood chemistry; F10.21 Alcohol dependence, in remission; Z88.5 Allergy status to narcotic agent; Z79.899 Other long term (current) drug therapy; Z80.8 Family history of malignant neoplasm of other organs or systems; Z83.49 Family history of other endocrine, nutritional and metabolic diseases

== ENCOUNTER → 2020-06-28 | Outpatient (CLI) | payer MEDICARE, MEDICAID | LOC: LAB.O 13:25 | PROVIDERS: ATTEND Nurse Practitioner Family | DX: E83.51 Hypocalcemia (principal) ==

== ENCOUNTER → 2020-07-01 | Outpatient (CLI) | payer MEDICARE, MEDICAID ==
--- NOTE | 2020-07-02 10:41 | CT ---
EXAM DESCRIPTION: CTA Chest: Computed Tomography. CLINICAL HISTORY: DYSPNEA COMPARISON: Chest radiograph one view June 24. TECHNIQUE: Spiral-axial scans at 2.5 x 2.5 mm intervals through the pulmonary arteries and chest after bolus infusion of IV contrast. Lung algorithm 1.25 x 2.5-mm axial reconstructions. Coronal and sagittal 2.0 Mm reconstructions. 10.0 mm PE oblique 3-D reformatted images. No adverse reactions. Total Exam DLP: 565 mGy-cm. This exam was performed according to our departmental CT dose-optimization program which includes automated exposure control, adjustment of the mA and/or kV according to patient size and/or use of iterative reconstruction technique; to reduce radiation dose to as low as reasonably achievable (ALARA). FINDINGS: Pulmonary arteries: Contrast density in the pulmonary artery is slightly greater than contrast density in the left atrium, left ventricle, and aorta. Pulmonary arterial system is well visualized with contrast material from the main pulmonary artery to the bilateral proximal subsegmental arterial branches with no filling defects. Heart and other great vessels: Atherosclerotic calcification of the aortic arch and minimal ectasia of the ascending aortic arch but no aneurysm or dissection. Minimal calcification and intimal wall thickening of the distal aorta. Minimal calcification in the proximal LAD. Lungs and airways: Dilated airspaces, both blebs and bulla central and subpleural in location. Degree of airspace dilation is decreasing in the lower lung hernandez. Minimal posterior basilar dependent atelectasis. Posterior midlung subpleural dilated airspaces and honeycombing. No abnormal nodules and no masses. No focal infiltrates.. Pleura: Bilateral apical thickening. Other areas of thickening. No acute process. Mediastinum and ana: scatter artifact from dense PA contrast. Small lymph nodes present but no dominant soft tissue mass. Soft tissue neck, chest wall, and axillae: Normal sized axillary nodes. . Upper abdomen: No free air or free fluid in the included peritoneal space. Left adrenal gland is enlarged measuring 2.5 x 1.4 cm. Density ranges from -8 to +4 HU, consistent with an adenoma. No calcifications. Gallbladder visualized. Calcifications and intimal wall thickening in the upper abdominal aorta. Partial visualization of 5.1 cm cyst in the upper pole of the left kidney. Osseous structures: Minimal thoracic spondylosis. Minimal sternoclavicular arthrosis. IMPRESSION: 1. CTA of the pulmonary arteries showing no evidence of acute or chronic pulmonary embolus. 2. Moderate emphysematous changes in the lungs combination of paraseptal and centrilobular type. No acute infiltrate, no abnormal nodule, and no pulmonary mass. 3. 2.5 cm left adrenal adenoma. No further imaging follow-up is recommended. Partial visualization of 5.1 cm cyst in the left kidney. Follow-up only if symptomatic. 4. Moderate atherosclerotic disease in the lower thoracic and upper abdominal aorta. Calcification coronary arteries. Correlate for atherosclerotic disease and risk factors. Electronically signed by: Dexter Paula MD 07/02/2020 10:40 AM CDT
== END ==
LOC: RAD 15:48
PROVIDERS: ATTEND Nurse Practitioner
DX: J43.9 Emphysema, unspecified (principal); R06.00 Dyspnea, unspecified; D35.02 Benign neoplasm of left adrenal gland; N28.1 Cyst of kidney, acquired; I70.0 Atherosclerosis of aorta; I77.89 Other specified disorders of arteries and arterioles